=== PATIENT | female | born 1960 | race Caucasian/White ===

== ENCOUNTER → 2016-05-30 | Outpatient (CLI) | payer BC ==
[2016-05-30 15:00] LABS: ABSOLUTE EOSINOPHILS # (AUTO) 0.2 10^3/uL (0.0-0.6); ABSOLUTE LYMPHOCYTES (AUTO) 1.5 10^3/uL (0.5-4.7); ABSOLUTE MONOCYTES (AUTO) 0.5 10^3/uL (0.1-1.4); ABSOLUTE NEUT (AUTO) 5.6 10^3/uL (1.7-8.2); BASOPHILS % (AUTO) 0.6 % (0-2); EOSINOPHILS % (AUTO) 2.9 % (0-6); HEMATOCRIT 48.1 % (36.0-47.0); HEMOGLOBIN 16.5 g/dL (12.0-15.5); HGB HCT DIFFERENCE 1.4; LYMPHOCYTES % (AUTO) 19.7 % (13-45); MEAN CORPUSCULAR HEMOGLOBIN 32.4 pg (27.0-33.4); MEAN CORPUSCULAR HGB CONC 34.3 g/dL (32.0-36.0); MEAN CORPUSCULAR VOLUME 94 fl (80-97); MONOCYTES % (AUTO) 5.8 % (3-13); RED CELL DISTRIBUTION WIDTH 13.3 % (11.5-14.0); WHITE BLOOD COUNT 7.9 10^3/uL (4.0-10.5)
[2016-05-30 15:00] LABS: APPEARANCE,URINE SLIGHTLY-CLOUDY; BILIRUBIN,URINE NEGATIVE (NEGATIVE); GLUCOSE, URINE NEGATIVE (NEGATIVE); KETONES,URINE NEGATIVE (NEGATIVE); LEUKOCYTE ESTERASE,URINE NEGATIVE (NEGATIVE); NITRITE,URINE NEGATIVE (NEGATIVE); PROTEIN,URINE NEGATIVE (NEGATIVE); URINE SPECIFIC GRAVITY 1.024
[2016-05-30 15:10] LABS: PROTHROMBIN TIME 12.1 SEC (11.4-15.4)
[2016-05-30 15:11] LABS: PARTIAL THROMBOPLASTIN TIME 24.4 SEC (23.5-35.8)
== END ==
LOC: OD 12:45
PROVIDERS: ATTEND Pain Medicine Interventional Pain Medicine
DX: Z79.01 Long term (current) use of anticoagulants (principal)
CPT/HCPCS: 36415; 81001; 85025; 85610; 85730

== ENCOUNTER → 2016-07-09 | Outpatient (CLI) | payer BC ==
[2016-07-09 16:34] LABS: HEMATOCRIT 46.2 % (36.0-47.0); HEMOGLOBIN 15.6 g/dL (12.0-15.5); HGB HCT DIFFERENCE 0.6; MEAN CORPUSCULAR HGB CONC 33.7 g/dL (32.0-36.0); MEAN CORPUSCULAR VOLUME 95 fl (80-97); RED BLOOD COUNT 4.88 10^6/uL (3.72-5.28); RED CELL DISTRIBUTION WIDTH 13.6 % (11.5-14.0); WHITE BLOOD COUNT 6.8 10^3/uL (4.0-10.5)
[2016-07-09 16:36] LABS: APPEARANCE,URINE CLEAR; BILIRUBIN,URINE NEGATIVE (NEGATIVE); GLUCOSE, URINE NEGATIVE (NEGATIVE); KETONES,URINE NEGATIVE (NEGATIVE); LEUKOCYTE ESTERASE,URINE NEGATIVE (NEGATIVE); NITRITE,URINE NEGATIVE (NEGATIVE); PROTEIN,URINE NEGATIVE (NEGATIVE); URINE SPECIFIC GRAVITY 1.005; UROBILINOGEN,URINE NEGATIVE mg/dL (<2.0)
[2016-07-09 16:39] LABS: PARTIAL THROMBOPLASTIN TIME 23.2 SEC (23.5-35.8); PROTHROMBIN TIME 11.7 SEC (11.4-15.4)
--- NOTE | 2016-07-09 21:40 | EKG REPORT ---
SEVERITY:- NORMAL ECG - SINUS RHYTHM : Confirmed by: Luz Mathews 09-Jul-2016 21:40:23
== END ==
LOC: OD 14:09
PROVIDERS: ATTEND Pain Medicine Interventional Pain Medicine
DX: M54.17 Radiculopathy, lumbosacral region (principal)
CPT/HCPCS: 36415; 81001; 85027; 85610; 85730; 93005; 93010

== ENCOUNTER 2016-07-15 06:35 | Day surgery (SDC) | payer BC ==
[~2016-07-15 06:35] MED LIST: CEFAZOLIN 1 GM/D5W RTU 1 GM/50 ML RTUPB IV SCH; RINGERS SOLUTION,LACTATED 1,000 ML IV PRN
[2016-07-15] MEDS ORDERED: LIDOCAINE 1% INJ-PF (10 MG/ML) 30 ML SDV ONE ×2 (06:49→09:35)
[2016-07-15] MEDS ORDERED: SODIUM BICARBONATE 8.4% INJ 50 MEQ/50 ML DISP.SYRIN ONE (06:49)
[2016-07-15] MEDS ORDERED: BUPIVACAINE HCL 0.25% /EPINEPHRINE INJ/PF 30 ML SDV ONE ×2 (06:49→08:41)
[2016-07-15] MEDS ORDERED: CEFAZOLIN SODIUM 1 GM in DEXTROSE 5%-WATER 50 ML IV PRN (07:14)
[2016-07-15] MEDS ORDERED: KETAMINE HCL INJ 500 MG/10 ML VIAL ONE (07:28)
[2016-07-15] MEDS ORDERED: FENTANYL CITRATE INJ/PF 250 MCG/5 ML AMPULE ONE (07:28)
[2016-07-15] MEDS ORDERED: MIDAZOLAM 2 MG/2 ML INJ ONE (07:29)
[2016-07-15] MEDS ORDERED: PROPOFOL INJ 200 MG/20 ML VIAL IV ONE (07:30)
[2016-07-15] MEDS ORDERED: DEXMEDETOMIDINE INJ 80 MCG/20 ML VIAL IV ONE (07:30)
[2016-07-15] MEDS ORDERED: MEPERIDINE HCL/PF INJ 25 MG/1 ML DISP.SYRIN IV PRN (08:46)
[2016-07-15] MEDS ORDERED: PROMETHAZINE HCL INJ 25 MG/1 ML VIAL IV PRN ×2 (08:46)
[2016-07-15] MEDS ORDERED: FENTANYL CITRATE INJ/PF 100 MCG/2 ML AMPUL IV PRN ×3 (08:46)
[2016-07-15] MEDS ORDERED: DIPHENHYDRAMINE HCL 50 MG/ML VIAL IV PRN (08:46)
[2016-07-15] MEDS ORDERED: OXYCODONE-ACETAMINOPHEN 5-325 MG TABLET PO PRN ×2 (08:46)
[2016-07-15] MEDS ORDERED: MORPHINE SULFATE 10 MG/ML INJ IV PRN (08:46)
[2016-07-15] MEDS ORDERED: NORMAL SALINE INJ/PF 0.9% 10 ML SDV INJ ONE (09:00)
[2016-07-15] MEDS ORDERED: CEFAZOLIN INJ 1 GM VIAL ONE (10:21)
[2016-07-15] MEDS ORDERED: HYDROMORPHONE HCL 2 MG TABLET PO PRN (10:46)
--- NOTE | 2016-07-15 11:53 | OPERATIVE REPORT E ---
Operative Report NAME: BECKY TRUJILLO : 1960 AGE: 56Y DATE OF SURGERY: 07/15/2016 ROOM: PREOPERATIVE DIAGNOSIS: Lumbar radiculopathy and chronic pain. POSTOPERATIVE DIAGNOSIS: Lumbar radiculopathy and chronic pain. PROCEDURE PERFORMED: Implantation of dual octrode spinal cord stimulator with [employer] implantable pulse generator. PRIMARY SURGEONS: AMY HERMOSILLO M.D. AND EMELY ADAMS M.D. IV FLUIDS: 1 liter of balanced crystalloid solution. ESTIMATED BLOOD LOSS: 5 mL. OPERATIVE FINDINGS: Two octrode leads in the [employer] system were placed with final positioning at mid body of T8 to the bottom of T9. ANTIBIOTICS: One gram Ancef given perioperatively. ANESTHESIA: Local with sedation. OPERATIVE FINDINGS: The patient is a pleasant 56-year-old female with chronic longstanding low back pain. The patient underwent a successful trial of spinal cord stimulation and agreed to proceed with implant. Risks and benefits of the procedure were discussed with the patient in detail, including but not limited to bleeding, bruising, infection, injury to nerves, arteries, veins, possibility of loss of bowel or bladder function, paralysis, and even . Also, the possibility of lead migration or failure to completely alleviate pain. The patient agreed to proceed. OPERATIVE DETAIL: The patient was accompanied by Anesthesia to the operative suite where she was placed in prone position and all pressure points were checked and padded. Standard ASA lines and monitors were applied. One gram of Ancef was given perioperatively. Sedation was induced. The patient was prepped and draped in sterile fashion using chlorhexidine gluconate solution, Ioban, and a universal drape. AP and lateral fluoroscopic views were utilized to visualize the T12, L1, and L1-L2 interspace. Planned incision site was marked and anesthetized after a standard operative timeout protocol. The skin was anesthetized with buffered 1% lidocaine using a 25 gauge needle. Deeper tissues were subsequently infiltrated with 0.25% Marcaine with 1:100,000 epinephrine using same needle. Additionally, an incision site was marked over the right buttock where planned IPG insertion was to be placed. The skin here likewise anesthetized with 1% buffered lidocaine and deeper tissues infiltrated with 0.25% Marcaine. Incision was made in the midline using a 12 blade scalpel. Blunt and electrocautery dissection were utilized to maintain adequate hemostasis and dissect to the level of the prevertebral fascia. The planned epidural insertion site was anesthetized using a 25-gauge 3.5 inch spinal needle with 1% lidocaine. A 17-gauge Tuohy needle provided by the [employer] kit was advanced under intermittent AP and lateral fluoroscopic guidance to the T12-L1 interspace on the right side. Loss of resistance was attained to normal saline. An octrode lead provided by the [employer] system was advanced through the needle into the posterior epidural space and posterior placement was confirmed using lateral fluoroscopy. The lead was advanced to the bottom of T7. The procedure was performed in the exact same fashion on the left side with the exception that entry to the epidural space on this side was at L1-L2. Octrode lead was advanced on the posterior epidural space again to the bottom of the T7 vertebral body. At this point, the patient was awakened from sedation and the leads were connected to the stimulating system. The lead placement was tested with the [employer] auto service representative. A few minor changes were made in lead placement and the leads were subsequently moved more inferior to the mid body of T8 extending down to the bottom of T9. Once placement was confirmed, the stylettes were removed from the octrodes and needles were also removed. A pursestring suture was placed with 0 Mersilene and an additional stay suture for anchoring was placed with 0 Mersilene. The anchor provided by the [employer] kit was advanced over the lead and buried in the prevertebral fascia. The pursestring suture was tied tight and then subsequently used to attach the anchor to the fascia. The additional suture was tied with 0 Mersilene so that both distal and proximal portions of the anchor were sutured to the fascia. A Hex wrench was then utilized to tighten the anchor around the lead. This was performed in the exact same fashion on the opposite lead. Notably, at this point, there was some lead migration noted of the rightward lead. The Hex wrench was loosened and the lead was moved easily and then confirmed placement with AP and lateral fluoroscopy. Testing was reperformed with good testing noted, and then the lead was re- secured using the hex wrench to tighten the anchor. Attention was turned to the buttock pocket where incision was made with a 12-blade scalpel. Deeper dissection into the fascia was performed with blunt dissection and electrocautery. Adequate hemostasis was appreciated. The pocket was appropriately sized for the template for the implantable pulse generator. Both incision sites at this point were copiously irrigated with a dilute Betadine solution. Tunneling was then performed using a 3.5 inch 22-gauge spinal needle and lidocaine. The tunneling device provided by the [employer] kit was advanced from the midline incision to the pocket. The leads were labeled and passed through the tunneling device. The leads were then attached to the implantable pulse generator and impedances were checked and noted to be appropriate. The leads were then secured using the Hex wrench to the implantable pulse generator. The implantable pulse generator was then placed in the pocket and the closure ensued. Closure ensued with a 3-0 Vicryl deep layer in the midline and additional layer more superficial with 3-0 Vicryl interrupted suture. The skin was then closed in the midline with usman. The buttock pocket was closed with 3-0 Vicryl interrupted suture in a single layer and then the skin closed with Dermabond glue and tape. The incision sites were infiltrated with 0.25% Marcaine prior to completion. The incisions were dressed and dried, and the patient was accompanied to the post-anesthesia recovery unit in stable condition. The patient tolerated the procedure well and will be discharged to home after programming. DICTATING PHYSICIAN: AMY HERMOSILLO M.D. [id number] PHY#: [id number] ID: [id number] JOB#: [id number] ACCT: [id number] cc:AMY HERMOSILLO M.D. > MTDD
[2016-07-15 12:18] VITALS: BP 110/68
[2016-07-15] MEDS ORDERED: ONDANSETRON HCL INJ/PF 4 MG/2 ML SDV ONE (14:26)
[2016-07-15] MEDS ORDERED: LIDOCAINE 2% INJ-PF (20 MG/ML) 10 ML AMPUL ONE (14:26)
[2016-07-15] MEDS ORDERED: METOCLOPRAMIDE HCL INJ/PF 10 MG/2 ML SDV ONE (14:26)
[2016-07-15] MEDS ORDERED: GLYCOPYRROLATE INJ 0.4 MG/2 ML VIAL ONE (14:26)
== END 2016-07-15 12:20 | disposition home or self-care (01) ==
LOC: OROUT 06:35
PROVIDERS: ATTEND Pain Medicine Interventional Pain Medicine
PROC: 00HU3MZ Insertion of Neurostimulator Lead into Spinal Canal, Percutaneous Approach (ICD-10-PCS; 2016-07-15)
PROC: 0JH70MZ Insertion of Stimulator Generator into Back Subcutaneous Tissue and Fascia, Open Approach (ICD-10-PCS; principal; 2016-07-15 08:00)
DX: M54.17 Radiculopathy, lumbosacral region (principal); I10 Essential (primary) hypertension; M19.90 Unspecified osteoarthritis, unspecified site; M51.36 Other intervertebral disc degeneration, lumbar region; M50.30 Other cervical disc degeneration, unspecified cervical region; M54.12 Radiculopathy, cervical region; G89.4 Chronic pain syndrome; M79.1 Myalgia; E66.9 Obesity, unspecified; Z79.899 Other long term (current) drug therapy; Z79.891 Long term (current) use of opiate analgesic; Z68.42 Body mass index [BMI] 45.0-49.9, adult
CPT/HCPCS: 71010; 72070; 63685; 63650; C1820; C1778; J2250; J3490 ×7; J0690; J3010; J2765; J2405; J2704; 300

== ENCOUNTER → 2017-02-20 | Outpatient (CLI) | payer BC ==
--- NOTE | 2017-02-20 11:18 | RADIOLOGY REPORT (SQ) ---
EXAM DESCRIPTION: CT CERVICAL SPINE WITHOUT COMPLETED DATE/TIME: 02/20/2017 10:36 am REASON FOR STUDY: CERVICAL RADICULOPATHY (M54.12) M54.16 RADICULOPATHY, LUMBAR REGION M54.12 RADIC ULOPATHY, CERVICAL REGION COMPARISON: None. TECHNIQUE: Axial images acquired through the cervical spine without intravenous contrast. Images re viewed with lung, soft tissue and bone windows. Reconstructed coronal and sagittal MPR images review ed. Images stored on PACS. All CT scanners at this facility use dose modulation, iterative reconstruction, and/or weight based d osing when appropriate to reduce radiation dose to as low as reasonably achievable (ALARA). [facility]: Dose Right [facility]: CareDose [facility]: Dose Right [facility]: Teradose 4D [facility]: [employer] RADIATION DOSE: Up-to-date CT equipment and radiation dose reduction techniques were employed. CTDIv ol: 21.1 mGy. DLP: 472 mGy-cm. mGy. LIMITATIONS: None. FINDINGS: ALIGNMENT: There is slight reversal of the normal cervical lordosis. MINERALIZATION: Normal. VERTEBRAL BODIES: No fractures or dislocation. Uncovertebral osteophytes are present at C3-4, right more than left. DISCS: There is mild narrowing of C4-5, C5-6, and C6-7 disc spaces. Anterior osteophytes are present at these levels. FACETS, LATERAL MASSES, POSTERIOR ELEMENTS: No fractures. No dislocation. No acute findings. HARDWARE: None in the spine. VISUALIZED RIBS: No fractures. LUNG APICES AND SOFT TISSUES: No significant or acute findings. OTHER: No other significant finding. IMPRESSION: 1. There is slight reversal of normal cervical curve. 2. There are degenerative disc changes as described. 3. There are uncovertebral osteophytes at C3-4, right more than left. This results in mild right fo raminal stenosis. TECHNICAL DOCUMENTATION: JOB ID: [id number] Quality ID # [id number]: Final reports with documentation of one or more dose reduction techniques (e.g., Au tomated exposure control, adjustment of the mA and/or kV according to patient size, use of iterative reconstruction technique) 2010 [employer]- All Rights Reserved
--- NOTE | 2017-02-20 11:38 | RADIOLOGY REPORT (SQ) ---
EXAM DESCRIPTION: CT LUMBAR SPINE WITHOUT COMPLETED DATE/TIME: 02/20/2017 10:36 am REASON FOR STUDY: LUMBAR RADICULOPATHY (M54.12) M54.16 RADICULOPATHY, LUMBAR REGION M54.12 RADICUL OPATHY, CERVICAL REGION COMPARISON: None. TECHNIQUE: Axial images acquired through the lumbar spine without intravenous contrast. Images revi ewed with lung, soft tissue and bone windows. Reconstructed coronal and sagittal MPR images reviewed . All images stored on PACS. All CT scanners at this facility use dose modulation, iterative reconstruction, and/or weight based d osing when appropriate to reduce radiation dose to as low as reasonably achievable (ALARA). [facility]: Dose Right [facility]: CareDose [facility]: Dose Right [facility]: Teradose 4D [facility]: [employer] RADIATION DOSE: Up-to-date CT equipment and radiation dose reduction techniques were employed. CTDIv ol: 32.6 mGy. DLP: 1032 mGy-cm. mGy. LIMITATIONS: None. FINDINGS: SEGMENTATION: Normal. No transitional anatomy. ALIGNMENT: There is grade 1 anterolisthesis of L3 on L4. There is grade 1 anterolisthesis of L4 on L 5. VERTEBRAL BODIES: Mild predominantly inferior endplate compression changes at L3 and L4. This is not appear to be acute. DISCS: Vacuum disc phenomenon is present at L3-4, L4-5, and L5-S1. These disc spaces are narrowed. There are calcifications in the posterior longitudinal ligament at T11-12. There is mild concentric disc bulging at L1-2 with no significant central canal or foraminal stenosis. There is concentric bu lging of the disc at L2-3 with facet hypertrophy and hypertrophy of the ligamentum flavum resulting i n moderate central canal stenosis and mild bilateral foraminal stenoses. There is significant centra l canal stenosis at L3-4 secondary to the anterolisthesis and facet and ligamentum flavum hypertrophy . There is significant central canal stenosis at L4-5 secondary to anterolisthesis, and facet and li gamentum flavum hypertrophy. There is calcification in the posterior longitudinal ligament at L5-S1. There is bilateral facet hypertrophy. This results in foraminal stenosis bilaterally, left more th an right PEDICLES, TRANSVERSE PROCESSES: No acute abnormalities. FACETS, POSTERIOR ELEMENTS: Hypertrophic facet changes are present at T12-L1, L1-2, L2-3, L3-4, L4-5, L5-S1. HARDWARE: None in the spine. VISUALIZED RIBS: No fractures. SOFT TISSUES: No significant or acute finding in adjacent soft tissues. OTHER: No other significant finding. IMPRESSION: 1. Anterolisthesis of L3 on L4 and of L4 on L5. 2. Multilevel degenerative disc disease and facet arthropathy. 3. Varying degrees of stenoses as described above. Most prominent stenoses at L3-4 and L4-5. 4. Foraminal stenosis L5-S1 greater on the left than the right. TECHNICAL DOCUMENTATION: JOB ID: [id number] Quality ID # [id number]: Final reports with documentation of one or more dose reduction techniques (e.g., Au tomated exposure control, adjustment of the mA and/or kV according to patient size, use of iterative reconstruction technique) 2010 [employer]- All Rights Reserved
== END ==
LOC: RAD 10:14
PROVIDERS: ATTEND Pain Medicine Interventional Pain Medicine
DX: M54.16 Radiculopathy, lumbar region (principal); M54.12 Radiculopathy, cervical region
CPT/HCPCS: 72125; 72131